=== PATIENT | male | born 1965 | race Caucasian/White ===

== ENCOUNTER 2016-08-01 23:31 | Emergency (ER) | payer MEDICARE, MEDICAID ==
[2016-08-01 23:47] VITALS: BP 147/89
== END 2016-08-01 23:47 | disposition left against medical advice (07) ==
LOC: ER 23:31
DX: Z53.21 Procedure and treatment not carried out due to patient leaving prior to being seen by health care provider (principal)

== ENCOUNTER 2016-09-07 15:30 | Emergency (ER) | payer MEDICARE, OTHER, MEDICAID ==
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
--- NOTE | 2016-09-07 17:23 | RADIOLOGY REPORT (SQ) ---
EXAM DESCRIPTION: FOOT LEFT COMPLETE COMPLETED DATE/TIME: 09/07/2016 4:59 pm REASON FOR STUDY: left foot pain s/p injury COMPARISON: None. NUMBER OF VIEWS: Three views left foot. LIMITATIONS: None. FINDINGS: Normal bone density. Mild dorsal soft tissue swelling without radiopaque foreign body. N o fracture or dislocation evident. OTHER: No other significant finding. IMPRESSION: No fracture. Soft tissue swelling without foreign body. TECHNICAL DOCUMENTATION: JOB ID: [id number]
[2016-09-07 18:19] VITALS: BP 160/85
== END 2016-09-07 18:19 | disposition home or self-care (01) ==
LOC: ER 15:30
DX: M79.672 Pain in left foot (principal); F17.200 Nicotine dependence, unspecified, uncomplicated
CPT/HCPCS: 99283

== ENCOUNTER 2017-11-01 12:54 | Emergency (ER) | payer MEDICARE, OTHER, MEDICAID ==
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
[2017-11-01 14:02] LABS: ANION GAP 12 (5-19); BLOOD UREA NITROGEN 25 mg/dL (7-20); CALCIUM 9.2 mg/dL (8.4-10.2); CARBON DIOXIDE 33 mmol/L (22-30); CHLORIDE 97 mmol/L (98-107); GLUCOSE 145 mg/dL (75-110); POTASSIUM 4.1 mmol/L (3.6-5.0); SODIUM 142.4 mmol/L (137-145)
[2017-11-01 14:23] VITALS: BP 134/78
== END 2017-11-01 14:30 | disposition home or self-care (01) ==
LOC: ER 12:54
DX: E86.0 Dehydration (principal); R56.9 Unspecified convulsions; Z79.899 Other long term (current) drug therapy; Z87.820 Personal history of traumatic brain injury
CPT/HCPCS: 36415; 80048; 80164; 82140; 99284

== ENCOUNTER → 2017-12-12 | Outpatient (CLI) | payer MEDICARE, OTHER, MEDICAID | LOC: LAB 14:43 | PROVIDERS: ATTEND Internal Medicine | DX: F44.5 Conversion disorder with seizures or convulsions (principal) | CPT/HCPCS: 36415; 80164 ==